=== PATIENT | female | born 1995 | race American Indian/Alaskan Native ===

== ENCOUNTER 2019-03-08 10:32 | Outpatient (CLI) | payer OTHER ==
[2019-03-08 11:20] LABS: Hematocrit 31.4 % (30.3-42.9); Hemoglobin 10.4 gm/dl (10.1-14.3); Mean Corpuscular HGB Conc 33 % (30-34); Mean Corpuscular Volume 79 fl (79-97); Platelet Count 177 K/mm3 (140-440); Red Blood Count 3.97 M/mm3 (3.65-5.03); Red Cell Distribution Width 16.2 % (13.2-15.2)
[2019-03-08 11:26] LABS: Bacteria,Urine 1+ /HPF (Negative); Bilirubin,Urine NEG (Negative); Blood,Urine NEG (Negative); Mucus,Urine 3+ /HPF; Urobilinogen,Urine < 2.0 mg/dL (<2.0)
[2019-03-08 11:31] LABS: Color,Urine Yellow (Yellow)
[2019-03-08 11:41] LABS: Alanine Aminotransferase 19 units/L (7-56); Uric Acid 5.3 mg/dL (3.5-7.6)
[2019-03-08 11:53] VITALS: BP 119/64
== END 2019-03-08 12:28 | disposition home or self-care (01) ==
LOC: TRG 10:32
PROVIDERS: ATTEND Obstetrics & Gynecology
DX: O47.1 False labor at or after 37 completed weeks of gestation (principal); Z3A.39 39 weeks gestation of pregnancy
CPT/HCPCS: 36415; 59025; 81001; 82565; 83615; 84450; 84460; 84550; 85027; 86850; 86900; 86901; 87086

== ENCOUNTER 2019-03-11 19:44 | Inpatient (IN) | payer OTHER ==
[2019-03-11 21:04] LABS: Hematocrit 32.6 % (30.3-42.9); Hemoglobin 10.4 gm/dl (10.1-14.3); Mean Corpuscular HGB Conc 32 % (30-34); Mean Corpuscular Volume 81 fl (79-97); Platelet Count 169 K/mm3 (140-440); Red Blood Count 4.04 M/mm3 (3.65-5.03); Red Cell Distribution Width 16.5 % (13.2-15.2)
[2019-03-11] MEDS ORDERED: CERVIDIL VG ONE (21:52)
[2019-03-12] MEDS ORDERED: XYLOCAINE 2% INFILTRATI ONE (00:29)
[2019-03-12] MEDS ORDERED: MINERAL OIL PO PRN (00:29)
[2019-03-12] MEDS ORDERED: BRETHINE IVP PRN (00:29)
[2019-03-12] MEDS ORDERED: STADOL IV PRN (00:29)
[2019-03-12] MEDS ORDERED: AMPICILLIN/NS 2 GM/100 ML 2 GM/100 ML BAG IV ONE (00:29)
[2019-03-12] MEDS ORDERED: BRETHINE SUB-Q PRN (00:29)
--- NOTE | 2019-03-12 00:29 | History and Physical Report ---
History of Present Illness Date of examination: 03/12/19 Date of admission: 03/11/19 19:44 Chief complaint: gestational hypertension History of present illness: 23y/o @ 40+2 weeks undergoing induction for gestational hypertension. The patient initiated care @ 10 weeks ega. 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 GBS positive. Patient denies leakage of fluid Past History Past Medical History: asthma, other (beta thal carrier) Past Surgical History: no surgical history Social history: single - Obstetrical History Expected Date of Delivery: 03/10/19 Actual Gestation: 40 Week(s) 2 Day(s) : 2 Para: 0 Hx # Term Pregnancies: 0 Number of Pregnancies: 0 Spontaneous Abortions: 0 Induced : 1 Number of Living Children: 0 Medications and Allergies Allergies Allergy/AdvReac Type Severity Reaction Status Date / Time No Known Allergies Allergy Verified 03/11/19 21:53 Home Medications Medication Instructions Recorded Confirmed Last Taken Type ALBUTEROL Inhaler (OR & NICU) 2 puff IH QID PRN #1 inhalation 07/16/18 Unknown Rx [ProAir HFA Inhaler] Amoxicillin/Potassium Clav 1 each PO BID #20 tablet 07/16/18 Unknown Rx [Augmentin 875-125 Tablet] Fluticasone [Flonase] 1 spray NS QDAY #1 bottle 07/16/18 Unknown Rx Review of Systems All systems: negative Genitourinary: no leakage of fluid - Vital Signs Vital signs: Vital Signs Pulse BP 81 128/75 03/11/19 21:06 03/11/19 21:06 Temp Pulse Resp BP Pulse Ox 96.3 F L 100 H 18 135/87 03/11/19 21:35 03/11/19 23:40 03/11/19 21:35 03/11/19 23:40 - Physical Exam Breasts: Positive: deferred Cardiovascular: Regular rate Lungs: Positive: Clear to auscultation Abdomen: Positive: normal appearance Results Result Diagrams: 03/11/19 20:47 03/12/19 01:03 Abnormal lab results 03/11/19 Range/Units 20:47 MCH 26 L (28-32) pg RDW 16.5 H (13.2-15.2) % All other labs normal. Assessment and Plan - Patient Problems (1) Gestational hypertension Current Visit: Yes Status: Acute Plan to address problem: admit for induction of labor
[2019-03-12] MEDS ORDERED: PITOCin/NS 20 UNIT/1000ML DRIP 20 UNITS/1,000 ML BAG IV SCH (01:00)
[2019-03-12] MEDS ORDERED: PITOCin/NS 30 UNIT/500ML 30 UNITS/500 ML BAG IV SCH (01:00)
[2019-03-12] MEDS ORDERED: LACTATED RINGERS 1,000 ML IV SCH (01:00)
[2019-03-12 02:08] LABS: Alanine Aminotransferase 18 units/L (7-56); BUN/Creatinine Ratio 13; Blood Urea Nitrogen 8 mg/dL (7-17); Hemolysis Index 45
[2019-03-12 04:22] LABS: Uric Acid 6.1 mg/dL (3.5-7.6)
[2019-03-12] MEDS ORDERED: AMPICILLIN/NS 1 GM/50 ML 1 GM/50 ML BAG IV SCH (04:30)
[2019-03-12] MEDS ORDERED: SUBLIMAZE ONE (09:08)
[2019-03-12] MEDS ORDERED: SUBLIMAZE IV PRN (09:30)
--- NOTE | 2019-03-12 13:28 | Event Note ---
Date: 03/12/19 Patient is s/p removal of cervidil after 12 hours. The patient states having a vaginal exam is painful and will not allow an adequate examination. The patient has requested to undergo a primary delivery. Risks and benefits and explained and consent signed. Will proceed with a primary .
[2019-03-12] MEDS ORDERED: MARCAINE 0.25% INFILTRATI ONE (15:19)
[2019-03-12] MEDS ORDERED: NARCAN 2 MG/2 ML IV PRN (15:41)
--- NOTE | 2019-03-12 15:41 | Anesthesia Consultation ---
Anesthesia Consult and Med Hx Date of service: 03/12/19 - Airway Anesthetic Teeth Evaluation: Good ROM Head & Neck: Adequate Mental/Hyoid Distance: Adequate Mallampati Class: Class II Intubation Access Assessment: Good - Pulmonary Exam CTA: Yes - Cardiac Exam Cardiac Exam: RRR - Pre-Operative Health Status ASA Pre-Surgery Classification: ASA2, Emergency Proposed Anesthetic Plan: Epidural - Pulmonary Hx Asthma: Yes COPD: No Hx Pneumonia: No - Cardiovascular System Hx Hypertension: No - Central Nervous System Hx Seizures: No Hx Psychiatric Problems: No - Endocrine Hx Renal Disease: No Hx End Stage Renal Disease: No Hx Hypothyroidism: No Hx Hyperthyroidism: No - Hematic Hx Anemia: No Hx Sickle Cell Disease: No - Other Systems Hx Alcohol Use: No
[2019-03-12] MEDS ORDERED: fentaNYL-BUPIV 2 MCG/ML-0.125% 200 MCG/100 ML BAG EPIDURAL SCH (16:00)
--- NOTE | 2019-03-12 17:28 | Event Note ---
Date: 03/12/19 Patient has had +SROM with clear fluid. Reports worsening contractions. Epidural initiated. Patient allowed nursing to perform a vaginal exam and patient is dilated to 4cm. She has elected to continue induction of labor.
[2019-03-12] MEDS ORDERED: PHENERGAN PO PRN (23:12)
[2019-03-12] MEDS ORDERED: LANSINOH TP PRN (23:12)
[2019-03-12] MEDS ORDERED: BENADRYL PO PRN (23:12)
[2019-03-12] MEDS ORDERED: ZOFRAN IV PRN (23:12)
[2019-03-12] MEDS ORDERED: TUCKS PAD TP PRN (23:12)
[2019-03-12] MEDS ORDERED: MILK OF MAGNESIA PO PRN (23:12)
[2019-03-12] MEDS ORDERED: PHENERGAN PR PRN (23:12)
[2019-03-12] MEDS ORDERED: DULCOLAX PR PRN (23:12)
[2019-03-12] MEDS ORDERED: TYLENOL PO PRN (23:12)
--- NOTE | 2019-03-12 23:12 | Procedure Note ---
OB Delivery Note - Delivery Date of Delivery: 03/12/19 Surgeon: ALINE HOFFMAN Estimated blood loss: other (150ml) - Vaginal Delivery presentation: vertex Delivery position: OA Delivery augmentation: pitocin Delivery monitor: external FHT, external uterine Route of delivery: Delivery placenta: spontaneous Delivery cord: 3 umbilical vessels Episiotomy: none Delivery laceration: 2nd degree Delivery repair: vicryl Anesthesia: epidural Delivery comments: Patient pushed to deliver a liveborn female infant with apgars of 8/9 with a weight 7lbs 3oz. After delivery of the head, the anterior shoulder delivered. The infant was bulb suctioned and stimulated. The cord was clamped and cut and the infant placed on the warmer. The placenta delivered spontaneously intact with a 3VC. The patient sustained a midline 2nd degree laceration repaired with 2-0 vicryl. EBL 150ml. - A at 1 minute: 8 at 5 minutes: 9 Infant Gender: Female (weight 7lbs 3oz.)
[2019-03-12] MEDS ORDERED: SODIUM CHLORIDE FLUSH SYRINGE 10 ML IV PRN (23:45)
--- NOTE | 2019-03-13 00:57 | Post Anesthesia Evaluation ---
- Post Anesthesia Evaluation Patient Participated: Yes Airway Patent: Yes Stable Respiratory Function: Yes Nausea/Vomiting: No Temp > 96.8F: Yes Pain Manageable: Yes Adequeate Hydration: Yes Anesthesia Complications: No Block Receding Appropriately: Yes Patient on Ventilator: No
[2019-03-13] MEDS: IBUPROFEN PO SCH ×4 (01:30→19:24)
[2019-03-13 11:01] LABS: Hematocrit 28.6 % (30.3-42.9); Hemoglobin 9.2 gm/dl (10.1-14.3)
[2019-03-13] MEDS: NORCO 5/325 PO PRN (15:43)
--- NOTE | 2019-03-13 18:05 | Progress Note ---
Assessment and Plan A: PPD#1 s/p at term,Obesity, Gestational HTN P:Routine care. Anticipate discharge tomorrow. Subjective - Subjective Date of service: 03/13/19 Principal diagnosis: s/p at term, Gestational HTN, Obesity Interval history: Pt without complaints. No headache, blurry vision or RUQ pain. Patient reports: appetite normal, voiding normally, pain well controlled, ambulating normally [place]: doing well Objective - Vital Signs Latest vital signs: Vital Signs Temp Pulse Resp BP BP Pulse Ox 03/13/19 16:34 97.4 F L 74 18 130/85 03/13/19 12:05 98 F 84 18 129/76 03/13/19 08:12 97.3 F L 78 18 130/90 03/13/19 05:14 20 03/13/19 05:03 98.6 F 90 20 130/72 93 03/13/19 02:32 103 H 96 03/13/19 02:31 98.8 F 106 H 20 129/77 96 03/13/19 01:02 109 H 155/90 03/13/19 00:47 110 H 150/93 03/13/19 00:32 109 H 146/85 03/13/19 00:18 114 H 136/79 03/13/19 00:03 120 H 154/103 03/12/19 23:47 114 H 138/80 03/12/19 23:33 153 H 132/63 03/12/19 23:18 130 H 162/77 03/12/19 23:14 146 H 176/93 03/12/19 23:05 142 H 162/94 03/12/19 22:18 130 H 166/93 03/12/19 21:51 105 H 99 03/12/19 21:46 117 H 98 03/12/19 21:41 113 H 99 03/12/19 21:36 110 H 99 03/12/19 21:35 102 H 159/97 03/12/19 21:31 137 H 98 03/12/19 21:26 132 H 96 03/12/19 21:21 91 H 98 03/12/19 21:19 100 H 159/80 03/12/19 21:16 99 H 97 03/12/19 21:11 114 H 97 03/12/19 21:06 102 H 98 03/12/19 21:04 106 H 154/93 03/12/19 21:01 99 H 98 03/12/19 20:56 91 H 99 03/12/19 20:51 89 98 03/12/19 20:47 103 H 144/92 03/12/19 20:46 102 H 98 03/12/19 20:41 90 98 03/12/19 20:36 94 H 98 03/12/19 20:34 115 H 147/94 03/12/19 20:31 111 H 98 03/12/19 20:26 95 H 99 03/12/19 20:21 91 H 99 03/12/19 20:17 96 H 150/77 03/12/19 20:16 90 99 03/12/19 20:11 105 H 98 03/12/19 20:06 91 H 98 03/12/19 20:03 95 H 150/70 03/12/19 20:01 96 H 98 03/12/19 19:56 96 H 99 03/12/19 19:51 113 H 98 03/12/19 19:48 94 H 190/98 03/12/19 19:46 99 H 98 03/12/19 19:41 89 99 03/12/19 19:36 86 100 03/12/19 19:33 94 H 162/77 03/12/19 19:31 89 99 03/12/19 19:26 84 100 03/12/19 19:21 84 99 03/12/19 19:18 151/76 03/12/19 19:16 100 H 99 03/12/19 19:11 103 H 99 03/12/19 19:06 86 100 03/12/19 19:04 75 148/79 03/12/19 19:01 74 99 03/12/19 18:56 86 100 03/12/19 18:51 81 99 03/12/19 18:48 81 139/83 03/12/19 18:46 77 98 03/12/19 18:41 97 H 97 03/12/19 18:36 87 98 03/12/19 18:32 105 H 150/97 03/12/19 18:31 94 H 99 03/12/19 18:26 90 98 03/12/19 18:21 75 99 03/12/19 18:17 78 145/90 03/12/19 18:16 67 98 08/06/19 18:11 70 97 03/12/19 18:06 66 97 Intake and Output 03/13/19 03/13/19 03/13/19 06:59 14:59 22:59 Intake Total 360 960 480 Output Total 300 300 Balance 60 660 480 Intake: Oral 960 480 Intake, Free Water 360 Output: Urine 300 300 Void 300 300 Other: Total, Intake Amount 480 480 Total, Output Amount 300 300 # Voids Void 1 Estimated Blood Loss 150 - Exam Breasts: Present: deferred Cardiovascular: Present: Regular rate Lungs: Present: Clear to auscultation Abdomen: Present: soft (obese ) Uterus: Present: fundal height at umbilicus Extremities: Present: edema (1+) - Labs Labs: Abnormal lab results 03/13/19 Range/Units 10:48 Hgb 9.2 L (10.1-14.3) gm/dl Hct 28.6 L (30.3-42.9) %
[2019-03-14] MEDS: IBUPROFEN PO SCH ×4 (00:06→18:14)
--- NOTE | 2019-03-14 07:59 | Progress Note ---
Assessment and Plan A: PPD#2 s/p at term,Obesity, Gestational HTN doing well P:Routine care. Anticipate discharge later today. Subjective - Subjective Date of service: 03/14/19 Principal diagnosis: s/p at term, Gestational HTN, Obesity Interval history: No overnight events. Patient reports: appetite normal, voiding normally, pain well controlled, ambulating normally : doing well Objective - Vital Signs Latest vital signs: Vital Signs Temp Pulse Resp BP 03/14/19 05:45 20 03/14/19 00:06 20 03/14/19 00:00 98.8 F 72 18 112/64 03/13/19 20:00 98.6 F 77 19 118/78 03/13/19 16:34 97.4 F L 74 18 130/85 03/13/19 12:05 98 F 84 18 129/76 03/13/19 08:12 97.3 F L 78 18 130/90 Intake and Output 03/13/19 03/14/19 03/14/19 22:59 06:59 14:59 Intake Total 780 Balance 780 Intake: Oral 480 Intake, Free Water 300 Other: Total, Intake Amount 480 - Exam Breasts: Present: deferred Cardiovascular: Present: Regular rate Lungs: Present: Clear to auscultation Abdomen: Present: soft (obese ) Uterus: Present: fundal height at umbilicus Extremities: Present: edema (trace) - Labs Labs: Abnormal lab results 03/13/19 Range/Units 10:48 Hgb 9.2 L (10.1-14.3) gm/dl Hct 28.6 L (30.3-42.9) %
--- NOTE | 2019-03-14 08:00 | Discharge Summary ---
Providers - Providers Date of Admission: 03/11/19 19:44 Date of discharge: 03/14/19 Attending physician: ALINE HOFFMAN Primary care physician: ALINE HOFFMAN Hospitalization Reason for admission: induction of labor Delivery: Procedure details: Please see delivery note. Episiotomy: none Laceration: 2nd degree Other procedures: none complications: none Discharge diagnosis: IUP at term delivered baby: female Hospital course: Patient was admitted for induction of labor for gestational hypertension. She went on to have a spontaneous vaginal delivery which she tolerated well. The remainder of her course is uncomplicated and she met discharge criteria on postoperative day #2. She will follow-up in 1 week for blood pressure check. Condition at discharge: Stable Disposition: DC-01 TO HOME OR SELFCARE - Discharge Diagnoses (1) Term of female Status: Acute (2) Gestational hypertension Status: Acute Qualifiers: Trimester: third trimester Qualified Code(s): O13.3 - Gestational [-induced] hypertension without significant proteinuria, third trimester (3) Anemia Status: Acute Qualifiers: Anemia type: unspecified type Qualified Code(s): D64.9 - Anemia, unspecified Plan - Discharge Medications Prescriptions: Ferrous Sulfate [Iron 325 MG] 325 mg PO BID #60 tablet Ibuprofen [Motrin 800 MG tab] 800 mg PO Q8HR PRN #30 tablet PRN Reason: Pain, Moderate (4-6) HYDROcodone/APAP 5-325 [[place] 5/325] 1 each PO Q6HR PRN #20 tablet PRN Reason: Pain - Provider Discharge Summary Activity: routine, no sex for 6 weeks, no heavy lifting 4 weeks, no strenuous exercise Diet: routine Instructions: routine Additional instructions: [] Smoking cessation referral if applicable(refer to patient education folder for contact #) [] Refer to [facility]'s [facility] Booklet Call your doctor immediately for: * Fever > 100.5 * Heavy vaginal bleeding ( >1 pad per hour) * Severe persistent headache * Shortness of breath * Reddened, hot, painful area to leg or breast * Drainage or odor from incision. * Keep incision clean and dry at all times and follow doctor's instructions regarding bathing/showering - Follow up plan Follow up: ADAN DUPREE CNM [Advanced Practice Nurse] - 7 Days (Please call to schedule a blood pressure check. )
[2019-03-14] MEDS: NORCO 5/325 PO PRN (18:13)
[2019-03-14 20:45] VITALS: BP 130/64
== END 2019-03-14 19:45 | disposition home or self-care (01) | DRG 774 ==
LOC: LD 19:44 → OB 03-13 02:05
PROVIDERS: ADMIT Obstetrics & Gynecology; ATTEND Obstetrics & Gynecology
PROC: 10E0XZZ Delivery of Products of Conception, External Approach (ICD-10-PCS; principal; 2019-03-12)
PROC: 0KQM0ZZ Repair Perineum Muscle, Open Approach (ICD-10-PCS; 2019-03-12)
PROC: 3E0R3BZ Introduction of Anesthetic Agent into Spinal Canal, Percutaneous Approach (ICD-10-PCS; 2019-03-12)
PROC: 00HU33Z Insertion of Infusion Device into Spinal Canal, Percutaneous Approach (ICD-10-PCS; 2019-03-12)
DX: O13.4 Gestational [pregnancy-induced] hypertension without significant proteinuria, complicating childbirth (principal); O99.52 Diseases of the respiratory system complicating childbirth; O99.824 Streptococcus B carrier state complicating childbirth; O70.1 Second degree perineal laceration during delivery; O99.214 Obesity complicating childbirth; O99.02 Anemia complicating childbirth; D64.9 Anemia, unspecified; E66.9 Obesity, unspecified; J45.909 Unspecified asthma, uncomplicated; Z37.0 Single live birth; Z3A.40 40 weeks gestation of pregnancy
CPT/HCPCS: 36415; 59200; 80053; 84550; 85014; 85018; 85027; 86592; 86850; 86900; 86901; G0378; J0290; J2590; J3010; J7120